=== PATIENT | male | born 1975 | race Caucasian/White ===

== ENCOUNTER 2020-01-28 14:47 | Outpatient (REF) | payer MEDICAID, SELFPAY ==
[2020-02-01 23:15] LABS: SARS-CoV-2 RNA Undetected (Undetected); SARS-CoV-2 Specimen Source Nasopharynx
== END 2020-01-28 15:07 ==
LOC: NCHCN 14:47
PROVIDERS: PCP Nurse Practitioner Family; Visit Provider Nurse Practitioner Family
DX: J02.9 Acute pharyngitis, unspecified (principal); Z11.59 Encounter for screening for other viral diseases
CPT/HCPCS: U0003

== ENCOUNTER 2020-07-21 20:20 | Outpatient (REF) | payer MEDICAID, SELFPAY ==
[2020-07-23 00:20] LABS: COVID-19 RT-PCR Result NEGATIVE (Negative)
== END 2020-07-21 20:40 ==
LOC: NCHCN 20:20
PROVIDERS: PCP Nurse Practitioner Family; Visit Provider Physician Assistant
DX: R51.9 Headache, unspecified (principal)
CPT/HCPCS: U0003

== ENCOUNTER 2021-09-21 15:27 | Emergency (ER) | payer MEDICAID, SELFPAY ==
[2021-09-21 15:40] VITALS: BP 148/92; PULSE 90; RESP 16; TEMP 36.8; O2SAT 98
--- NOTE | 2021-09-21 16:32 | ED.GENADUL_ITS ---
Discharge Plan Disposition Patient Disposition: HOME Condition: Improving Discharge Details Clinical Impression: Needle stick injury of hand Primary Care Provider: Radha Jordan ED Provider: Emmanuel Hernandez Home Meds and New Rx's Prescriptions: Continued albuterol sulfate [ProAir HFA] 8.5 GM HFA aerosol inhaler 2 puff Inhalation Q6H PRN 0RF Discharge Instructions Instructions: Puncture Wound (ED), Needle Stick Injuries (ED) Additional Instructions: Please follow-up with your primary care physician. Return to the emergency department for any signs of infection or further injury to finger. Specifically if you notice any swelling redness fevers pus drainage or worsening pain. We edward labs today to test for hepatitis B, hepatitis C and HIV. These will result in the next couple of days. 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 I offered to contact this individual however patient does not want to reach out as he is fearful that he may lose a client professionally. Given solid bore small needle that has likely been exposed to air for some time this is a low risk needlestick event. I counseled patient extensively regarding his proper management as he was correct and thoroughly irrigated the wound early on, we had patient continue to irrigate wound here in the department. Discussed postexposure prophylaxis but encouraged him at this point to postpone prophylaxis as it does come with side effects and his risk from this stick is likely low. Will draw basic hepatitis B C and HIV screening panel to obtain patient's baseline status. Patient will follow up with his primary care doctor. No evidence of retained foreign body or infection. No evidence of neurovascular or tendinous injury. HPI General Date/Time Provider Initiated Documentation: 09/21/21 15:37 . HPI Narrative: 46-year-old male presents after sustaining needlestick injury to tip of third digit of right hand, patient works for a cleaning service, was at a client's house cleaning behind a toilet when his finger came in contact with a small needle, describes the needle as small in nature less than 1 cm and solid bore attached to a piece of green plastic, patient said that the client also has what appears to be insulin pen and a glucometer in the house. Patient is unclear of clients hepatitis or HIV status and did not want to disturb the client as he fears he may lose a customer if he does so. Patient was able to express a small bit of blood fingertip if the stick and immediately thoroughly irrigated wound with soapy water and alcohol. Related Data Home Medications Medication Instructions Recorded Confirmed albuterol sulfate 90 mcg/actuation 2 puff INHALATION Q6H PRN inhaler 10/11/16 09/21/21 aerosol inhaler (ProAir HFA) Allergies Allergy/AdvReac Type Severity Reaction Status Date / Time No Known Allergies Allergy Unverified 09/21/21 15:47 General Stated Complaint: Laceration CHRISTA: 4 Review of Systems Narrative: Review of Systems Constitutional: negative Eyes: negative ENT: negative Cardiovascular: negative Respiratory: negative Gastrointestinal: negative : negative Musculoskeletal: negative Skin: Needlestick to finger Neurologic: negative Psych: negative PFSH All Active Problems (Updated 09/21/21 @ 16:42 by Emmanuel Hernandez MD) Needle stick injury of hand (Acute) Social History Smoking/Tobacco Use Status: Former Tobacco Use Smoking risk assessment performed?: Yes Alcohol Intake: never Drug use: Never Do you feel safe in your relationship?: Yes Exam Narrative Exam Narrative: Physical Examination General: alert, awake, cooperative, resting comfortably, no acute distress HEENT: normocephalic, atraumatic; PERRL, EOM intact, conjunctiva normal; no nasal discharge; moist mucous membranes, oral and pharyngeal mucosa normal, tolerating secretions Neck: supple, trachea midline; full ROM Chest: normal to inspection Respiratory: normal respiratory effort, speaking in full sentences, clear to auscultation, no wheezing, rales or rhonchi Cardiac: regular rate, regular rhythm, S1S2 intact, no murmurs rubs or gallops GI: abdomen soft, non-tender, non-distended; no palpable mass or hepatosplenomegaly Skin: Small punctate lesion to radial aspect of distal third digit adjacent to nail fold on right hand, hemostatic no foreign body Neuro: AAOx3, normal speech, moving all extremities Extremities: Range of motion fingers intact flexion extension, sensation intact, warm well perfused extremity good capillary refill. Psych: Appropriate mood and affect Course Vital Signs Vital signs: Vital Signs Temperature 36.8 C 09/21/21 15:40 Pulse 90 09/21/21 15:40 Respiratory Rate 16 09/21/21 15:40 Blood Pressure 148/92 H 09/21/21 15:40 Pulse Oximetry 98 09/21/21 15:40 Temperature 36.8 C 09/21/21 15:40 Temperature Source Skin 09/21/21 15:40 Pulse 90 09/21/21 15:40 Respiratory Rate 16 09/21/21 15:40 Respiratory Effort 09/21/21 15:47 Blood Pressure 148/92 H 09/21/21 15:40 Blood Pressure Position Sitting 09/21/21 15:40 Pulse Oximetry 98 09/21/21 15:40 Oxygen Delivery Method Room Air 09/21/21 15:40 Oxygen Flow Rate 0 09/21/21 15:40 Pain Level 0 09/21/21 15:40
[2021-09-21 19:00] LABS: ALT 72 U/L (16-63); AST 30 U/L (15-37); Albumin 4.3 g/dL (3.4-5.0); Alkaline Phosphatase 78 U/L (46-116); Bilirubin, Direct 0.1 mg/dL (0.0-0.2); Bilirubin, Total 0.6 mg/dL (0.2-1.0); Total Protein 7.2 g/dL (6.4-8.2)
[2021-09-23 10:11] LABS: HIV-1/2 Ag & Ab Screen Negative (Negative)
[2021-09-23 10:20] LABS: HBs Antibody, Quant <3.1 mIU/mL (See Note); Hep B Surface Ab Negative (See Note); Hepatitis B Core Antibody Negative (Negative); Hepatitis B Surface Antigen Negative (Negative)
[2021-09-23 10:28] LABS: Hepatitis C Ab w Rflx HCV PCR Negative (Negative)
== END 2021-09-21 18:28 | disposition home or self-care (01) ==
PROVIDERS: Emergency Provider Emergency Medicine; PCP Nurse Practitioner Family
DX: S61.232A Puncture wound without foreign body of right middle finger without damage to nail, initial encounter (principal); W46.0XXA Contact with hypodermic needle, initial encounter; Y99.0 Civilian activity done for income or pay
CPT/HCPCS: 80076; 86704; 86706; 86803; 87340; 87389; 99281; 99282

== ENCOUNTER 2022-02-20 17:47 | Emergency (ER) | payer MEDICAID, SELFPAY ==
[2022-02-20 17:52] VITALS: BP 135/79; PULSE 93; RESP 16; TEMP 38; O2SAT 97
--- OUTSIDE RECORDS SUMMARY | 2022-02-20 17:53 | XMS_ITS | Encounter Summary ---
:[address] [facility] Address [address] [place] [address] Care Team Providers Name Role Phone Unavailable Primary Care Provider Unavailable Encounter Details Date Type Department Care Team Description 07/15/2019 Lab Requisition [facility] Unknown, Provider, Pathology & Laboratory [facility] [address] [place] [address] [place] [address] Social History Tobacco Use Types Packs/Day Years Used Date Never Assessed Sex Assigned at Date Recorded Not on file documented as of this encounter Plan of Treatment Not on filedocumented as of this encounter Procedures Procedure Name Priority Date/Time Associated Diagnosis Comme nts HEPATITIS B SURFACE Routine 07/15/2019 11:40 Resu lts for this ANTIBODY EST procedure are i n the results section. documented in this encounter Results HEPATITIS B SURFACE ANTIBODY (07/15/2019 11:40 EST) Hep B Surface Ab, <3.1 See Note [facility] Quantitative Comment: mIU/mL [facility] Reference Range for Hep B Surface Ab, Quant: SERVICES Positive: >= 10.0 mIU/mL Negative: ??< 10.0 mIU/mL Patient is presumed to not be immune to infection with Hepatitis B Virus. Hep B Surface Ab, Negative See Note [facility] Qualitative Comment: [facility] SERVICES Reference Range for Hep B Surface Ab, Qual: Unvaccinated: ??Negative Vaccinated: ??Positive Specimen Blood - Venous blood (substance) Performing Organization Address City/State/ZIP Code Phon e Number [facility] [address] [place] [address] SERVICES documented in this encounter Visit Diagnoses Not on filedocumented in this encounter
--- OUTSIDE RECORDS SUMMARY | 2022-02-20 17:53 | XMS_ITS | Encounter Summary ---
:1975 Author Organization [facility] Address [address] [place] [address] Care Team Providers Name Role Phone Unavailable Primary Care Provider Unavailable Encounter Details Date Type Department Care Team Description 07/15/[address] [facility] Unknown, Provider, Pathology & Laboratory [facility] [address] [place] [address] [place], [place] [address] [phone] Social History Tobacco Use Types Packs/Day Years Used Date Never Assessed Sex Assigned at Date Recorded Not on file documented as of this encounter Plan of Treatment Not on filedocumented as of this encounter Procedures Procedure Name Priority Date/Time Associated Diagnosis Comme nts HOLD SST Routine 07/15/2019 15:52 Results for this EST procedure are i n the results section. HOLD SST Routine 07/15/2019 15:52 Results for this EST procedure are i n the results section. HOLD SST Routine 07/15/2019 15:51 Results for this EST procedure are i n the results section. MEASLES IGG AB Routine 07/15/2019 11:40 Results f or this EST procedure are i n the results section. RUBELLA IGG Routine 07/15/2019 11:40 Results for this ANTIBODY EST procedure are i n the results section. VARICELLA IGG Routine 07/15/2019 11:40 Results fo r this ANTIBODY EST procedure are i n the results section. MUMPS ANTIBODY IGG Routine 07/15/2019 11:40 Resul ts for this EST procedure are i n the results section. documented in this encounter Results HOLD SST (07/15/2019 15:52 EST) Pathologist Sig nature Hold Hold [facility] Specimen Blood - Venous blood (substance) Performing Organization Address City/State/ZIP Code Phon e Number [facility] [address] [place] [address] SERVICES HOLD SST (07/15/2019 15:52 EST) Pathologist Sig nature Hold Hold [facility] Specimen Blood - Venous blood (substance) Performing Organization Address City/State/ZIP Code Phon e Number [facility] [address] [place] [address] SERVICES HOLD SST (07/15/2019 15:51 EST) Pathologist Sig nature Hold Hold [facility] Specimen Blood - Venous blood (substance) Performing Organization Address City/State/ZIP Code Phon e Number [facility] [address] [place] [address] SERVICES MEASLES IGG AB (07/15/2019 11:40 EST) Measles IgG Ab PositiveComment: See Note [facility] Presence of LABORATORY SERVICES detectable measles virus IgG antibodies. Specimen Blood - Venous blood (substance) Performing Organization Address City/State/ZIP Code Phon e Number [facility] [address] [place] [address] SERVICES VARICELLA IGG ANTIBODY (07/15/2019 11:40 EST) Varicella IgG Ab PositiveComment: See Note [facility] Presence of LABORATORY SERVICES detectable Varicella Zoster virus IgG antibodies. Specimen Blood - Venous blood (substance) Performing Organization Address City/State/ZIP Code Phon e Number [facility] [address] [place] [address] SERVICES MUMPS ANTIBODY IGG (07/15/2019 11:40 EST) Mumps Antibody IgG PositiveComment: See Note [facility] Presence of LABORATORY SERVICES detectable mumps virus IgG antibodies. Specimen Blood - Venous blood (substance) Performing Organization Address City/State/ZIP Code Phon e Number [facility] [address] [place] [address] SERVICES RUBELLA IGG ANTIBODY (07/15/2019 11:40 EST) Rubella IgG Ab NegativeComment: See Note [facility] Sample is considereed LABORATORY SERVICES negative for IgG antibodies to Rubella virus. A negative result presumes that immunity has not been acquired. If exposure to Rubella virus is suspected despite a negative finding, a second specimen should be collected and tested for Rubella IgG Ab one or two weeks later. Specimen Blood - Venous blood (substance) Performing Organization Address City/State/ZIP Code Phon e Number [facility] [address] [place] [address] SERVICES documented in this encounter Visit Diagnoses Not on filedocumented in this encounter
--- OUTSIDE RECORDS SUMMARY | 2022-02-20 17:53 | XMS_ITS | Encounter Summary ---
:1975 Author Organization [facility] Address [address] [place] [address] Care Team Providers Name Role Phone Unavailable Primary Care Provider Unavailable Encounter Details Date Type Department Care Team Description 07/21/2020 Lab Requisition [facility] Outr Resulting Lab, Pathology & Laboratory Provider [facility] acute hospital [address] [place], [place] [address] Social History Tobacco Use Types Packs/Day Years Used Date Never Assessed Sex Assigned at Date Recorded Not on file documented as of this encounter Plan of Treatment Not on filedocumented as of this encounter Procedures Procedure Name Priority Date/Time Associated Comments Diagnosis DO NOT ORDER Today 07/21/2020 14:17 Results for this STANDALONE - BROAD EST procedure are in COVID TEST the results section. COVID-19 TESTING Routine 07/21/2020 14:17 Results for this EST procedure are i n the results section. documented in this encounter Results DO NOT ORDER STANDALONE - BROAD COVID TEST (07/21/2020 14:17 EST) COVID-19 rt-PCR NEGATIVE Negative [facility] Result Comment: LABORATORY 2019-novel Coronavirus (2019 -nCoV) not detected by the qRT-PCR assay. Consider testing for other respiratory viruses or re-collecting for 2019-nCoV testing. Note: Optimum timing for peak viral levels du ring infections caused by 20 -nCoV have not been determined. Collection of multiple specimens from the same patient may be necessary to detect the virus. Limitations Positive results are indicat mason of active infection with SARS-CoV-2 but do not rule out bacterial infection or co-infection with other viruses. The agent detected may not be the definite cause of diseas e. In addition, detection of viral RNA may not indicate the presence of infectious virus or that SARS-CoV-2 is the causative agent for clinical symptoms. Negative results do not prec lude SARS-CoV-2 infection and should not be used as the sole basis for patient management decisions. Negative results must be combined with clinical observations, patient his tory, and epidemiological in formation. False negative results may also occur if amplification inhibitors are present in the specimen or if inadequate numbers of organisms are present in the specimen. Op timum specimen types and priscilla ing for peak viral levels during infections caused by SARS-CoV-2 have not been fully determined. Collection of multiple specimens (types and time points) from the same patient may be necessary to detect the virus. The test was validated for u with upper respiratory specimens obtained via nasopharyngeal or oropharyngeal swabs in VTM, UTM, M4, M5, M6, saline, and MTM media. The performance of this test has not be en established for other spe cimens. Specimens collected using other FDA recommended Specimen Collection Materials listed in the FDA COVID-19 [employer] communication (October 24, 2019) are pr ocessed with the caveat that they were not all validated for use with this test and the result must be interpreted in this context. Furthermore, a false negative results may occur if a specimen is improperly collected, transported or handled. If the virus mutates in the RT-PCR target region, SARS-CoV-2 may not be detected or may be detected less predictably. Inhibitors or other types of interference may produce a false negative result. An interference study evaluating the effect of common cold medications was not performed. This test is not FDA-cleared but its performance characteristics were established by our CLIA-certified, CAP-accredited, high complexity laboratory in accordance with CLIA regulations, [employer] (CAP) guidel rhonda (Oct 17, 2019), and FDA guidance (Sep 28, 2019). This test is only for use un jazmin the Food and Drug Administration's Emergency Use Authorization. Specimen Swab - Entire nasopharynx (body structur e) Performing Organization Address City/State/ZIP Code Phon e Number [facility] [place] COVID-19 TESTING (07/21/2020 14:17 EST) COVID-19 rt-PCR NEGATIVE Negative [facility] Result Comment: LABORATORY 2019-novel Coronavirus (2019 -nCoV) not detected by the qRT-PCR assay. Consider testing for other respiratory viruses or re-collecting for 2019-nCoV testing. Note: Optimum timing for peak viral levels du ring infections caused by 20 19-nCoV have not been determined. Collection of multiple specimens from the same patient may be necessary to detect the virus. Limitations Positive results are indicat mason of active infection with SARS-CoV-2 but do not rule out bacterial infection or co-infection with other viruses. The agent detected may not be the definite cause of diseas e. In addition, detection of viral RNA may not indicate the presence of infectious virus or that SARS-CoV-2 is the causative agent for clinical symptoms. Negative results do not prec lude SARS-CoV-2 infection and should not be used as the sole basis for patient management decisions. Negative results must be combined with clinical observations, patient his tory, and epidemiological in formation. False negative results may also occur if amplification inhibitors are present in the specimen or if inadequate numbers of organisms are present in the specimen. Op timum specimen types and priscilla ing for peak viral levels during infections caused by SARS-CoV-2 have not been fully determined. Collection of multiple specimens (types and time points) from the same patient may be necessary to detect the virus. The test was validated for u se with upper respiratory specimens obtained via nasopharyngeal or oropharyngeal swabs in VTM, UTM, M4, M5, M6, saline, and MTM media. The performance of this test has not be en established for other spe cimens. Specimens collected using other FDA recommended Specimen Collection Materials listed in the FDA COVID-19 [employer] communication (October 24, 2019) are pr ocessed with the caveat that they were not all validated for use with this test and the result must be interpreted in this context. Furthermore, a false negative results may occur if a specimen is improperly collected, transported or handled. If the virus mutates in the RT-PCR target region, SARS-CoV-2 may not be detected or may be detected less predictably. Inhibitors or other types of interference may produce a false negative result. An interference study evaluating the effect of common cold medications was not performed. This test is not FDA-cleared but its performance characteristics were established by our CLIA-certified, CAP-accredited, high complexity laboratory in accordance with CLIA regulations, [employer] (CAP) guidel rhonda (Oct 17, 2019), and FDA guidance (Sep 28, 2019). This test is only for use un jazmin the Food and Drug Administration's Emergency Use Authorization. Performing Lab [facility] SERVICES Specimen Swab Performing Organization Address City/State/ZIP Code Phon e Number [facility] [address] [place] [address] SERVICES [facility] [place] documented in this encounter Visit Diagnoses Not on filedocumented in this encounter
--- OUTSIDE RECORDS SUMMARY | 2022-02-20 17:53 | XMS_ITS | Encounter Summary ---
:1975 Author Organization [facility] Address [address] [place] [address] Care Team Providers Name Role Phone Unavailable Primary Care Provider Unavailable Encounter Details Date Type Department Care Team Description 07/16/2019 Lab Requisition [facility] Unknown, Provider, Pathology & Laboratory [facility] [address] [place] [address] [place] [address] Social History Tobacco Use Types Packs/Day Years Used Date Never Assessed Sex Assigned at Date Recorded Not on file documented as of this encounter Plan of Treatment Not on filedocumented as of this encounter Procedures Procedure Name Priority Date/Time Associated Comments Diagnosis QUANTIFERON TB GOLD Routine 07/15/2019 11:40 Resu lts for this PLUS EST procedure are i n the results section. documented in this encounter Results QUANTIFERON TB GOLD PLUS (07/15/2019 11:40 EST) Quantiferon Negative Negative [facility] Interpretation Comment: [facility] No interferon-gamma response to M. tuberculosis antigens was detected. ??Infection with M. tuberculosis is unlikely. A single negative result does not exclude infection with M. tuberculosis. ??In patien SERVICES ts at high risk for M. tuber culosis infection, a second test should be considered in accordance with the 2017 ATS/IDSA/CDC Clinical Practice Guidelines for Diagnosis of Tuberculosis in Adults and Childr en. [Armani SALEH et. al. Clin. Infect. Dis. 2017:64 ( 2) ??: 111-115]. Results were obtained with the [employer] QuantiFERON TB G old Plus TACO. TB1 Ag minus Nil 0.00 IU/ml [facility] TB2 Ag minus Nil 0.00 IU/mL [facility] Specimen Blood - Venous blood (substance) Narrative [facility] - 07/17/2019 13:35 EST Results were obtained with the [employer] Qu antiFERON-TB Gold Plus TACO. Performing Organization Address City/State/ZIP Code Phon e Number [facility] [address] [place] [address] SERVICES documented in this encounter Visit Diagnoses Not on filedocumented in this encounter
--- OUTSIDE RECORDS SUMMARY | 2022-02-20 17:53 | XMS_ITS | Encounter Summary ---
:1975 Author Organization [facility] Address [address] [place] [address] Care Team Providers Name Role Phone Unavailable Primary Care Provider Unavailable Encounter Details Date Type Department Care Team Description 09/21/2021 Lab Requisition [facility] Outr Resulting Lab, Pathology & Laboratory Provider [facility] [address] [place] [address] Social History Tobacco Use Types Packs/Day Years Used Date Never Assessed Sex Assigned at Date Recorded Not on file documented as of this encounter Plan of Treatment Not on filedocumented as of this encounter Procedures Procedure Name Priority Date/Time Associated Comments Diagnosis HIV 1/2 ANTIGEN AND Routine 09/21/2021 16:41 Resu lts for this ANTIBODY, 4TH EST procedure are in GENERATION the results section. documented in this encounter Results HIV 1/2 ANTIGEN AND ANTIBODY, 4TH GENERATION (09/21/2021 16:41 EST) HIV 1 and 2 NegativeComment: If Negative [facility] Antibody/p24 acute HIV-1 LABORATORY Antigen, 4th infection is SERVICES Generation suspected in a high risk patient, submit plasma specimen for HIV-1 RNA quantitation test. Specimen Blood - Venous blood (substance) Narrative [facility] SERVICES - 09/23/2021 10:06 EST Fourth Generation assay performed on the Siemens Centaur XPT. Performing Organization Address City/State/ZIP Code Phon e Number [facility] [address] [place] [address] SERVICES documented in this encounter Visit Diagnoses Not on filedocumented in this encounter
--- OUTSIDE RECORDS SUMMARY | 2022-02-20 17:53 | XMS_ITS | Clinical Summary ---
:1975 Author Organization [facility] Address [address] [place] [address] Care Team Providers Name Role Phone Unavailable Primary Care Provider Unavailable Social History Tobacco Use Types Packs/Day Years Used Date Never Assessed Sex Assigned at Date Recorded Not on file Plan of Treatment Health Maintenance Due Date Last Done Comments COVID-19 Vaccine (1) 02/15/1981 Hepatitis C Screen Completed 09/21/2021 Insurance Payer Benefit Plan Subscriber ID Effective Phone Address Typ e / Group Dates MEDICAID ACO MEDICAID ACO [id number] 2019-Pres [phone] [address] [place] [address] [place] [address]
--- NOTE | 2022-02-20 18:15 | DI.CT_ITS ---
Exam(s) CT ABDOMEN PELVIS W EXAM: CT ABDOMEN PELVIS W CLINICAL HISTORY: LLQ abd pain, fever, concern for diverticulitis. TECHNIQUE: Imaging Protocol: Axial computed tomography images with coronal and sagittal reformatted images were created and reviewed CONTRAST MATERIAL: Intravenous: Omnipaque 100cc Oral: None COMPARISON: CT ABD PELVIS WITH CONTRAST from 01/07/2016 FINDINGS: VISUALIZED LUNG BASES: No nodules nor pleural effusions evident. ABDOMEN: There is no ascites. LIVER: There are no focal hepatic lesions evident . GALLBLADDER/BILIARY: No obvious gallbladder pathology. CBD is not dilated. PANCREAS: No evidence of pancreatic mass nor dilatation of the pancreatic duct. SPLEEN: Spleen is not enlarged. No obvious intrasplenic lesions. Splenic and portal veins are paten t. ADRENALS: There are no significant adrenal masses. KIDNEYS:No cysts evident. No solid renal masses. No calculi nor hydronephrosis.. ABDOMINAL AORTA: Abdominal aorta is not enlarged. LYMPH NODES:There is no retroperitoneal nor paraaortic adenopathy. ABDOMINAL WALL: No evidence of significant anterior abdominal wall nor inguinal hernia. PELVIS: GI: No evidence of appendicitis.Extensive sigmoid diverticulosis. Also streaking consistent with acu te diverticulitis. LYMPH NODES: There is no intrapelvic nor inguinal adenopathy. REPRODUCTIVE: Prostate not enlarged. Seminal vesicles unremarkable. URINARY BLADDER: Uniform bladder wall thickening. No air-gas within the lumen to suggest fistulous c ommunication to the inflammatory process of the sigmoid OSSEOUS: No significant osseous lesions. No fractures. IMPRESSION: 1. Findings are consistent with acute sigmoid diverticulitis, this superimposed upon extensive sigmoi d diverticulosis. Trace adjacent fluid. No abscess. No adenopathy. 2. Appendix appears unremarkable. 3. Slight uniform thickening of the urinary bladder wall noted but no gas within the bladder lumen to suggest fistulous communication to the sigmoid RADIATION DOSE DELIVERED: 806.94mGy.cm Total DLP DATA REPOSITORY: All CT scans at this facility are submitted to the National Radiology Data Registry (NRDR) Dose Index Registry (DIR) with the [employer] (A[employer]). RADIATION OPTIMIZATION: All CT scans at this facility use at least one of these dose optimization te chniques: automated exposure control; mA and/or kV adjustment per patient size (includes targeted exa ms where dose is matched to clinical indication); or iterative reconstruction.
--- NOTE | 2022-02-20 18:15 | DI.RAD_ITS ---
Exam(s) XR CHEST 1V IN DI DEPT EXAM: XR CHEST 1V IN DI DEPT CLINICAL HISTORY: nausea vomiting fever. TECHNIQUE: 2D digital imaging was performed. COMPARISON: CR CHEST 2 VIEWS PA,LAT from 01/21/2013 FINDINGS: Single AP portable view. Heart size is upper normal. The mediastinum is not widened. Lungs are clear. No infiltrates nor obvious pleural effusions. IMPRESSION: No acute pulmonary findings on this single AP portable view of the chest. DATA REPOSITORY: RADIATION DOSE DELIVERED: All CT scans at this facility use at least one of these dose optimization techniques: automated exposure control; mA and/or kV adjustment per patient size (includes targeted e xams where dose is matched to clinical indication); or iterative reconstruction.
--- NOTE | 2022-02-20 18:25 | ED.GENADUL_ITS ---
Discharge Plan Disposition Patient Disposition: HOME Condition: Stable Discharge Details Chief Complaint: Abd Prob Clinical Impression: Diverticulitis Primary Care Provider: Kat Dickson ED Provider: Emmanuel Hernandez Discharge Instructions Instructions: Diverticulitis (ED) Additional Instructions: Please follow-up with your primary care physician. Please take antibiotics as prescribed. Return to the emergency department he develop worsening symptoms such as worsening pain abdominal distention fevers chills inability to tolerate food or other abnormal symptoms. Medical Decision Making 47-year-old male presents with left lower quadrant abdominal discomfort over the past day associate with nausea decreased p.o. intake, persistent, diaphoresis on arrival, borderline tachycardic, febrile, concern for diverticulitis versus colitis versus less consider UTI with pyelonephritis or kidney stone lower suspicion for ACS or pneumonia given no respiratory symptoms. Fluids analgesia antiemetics labs imaging close reassessment disposition pending results 20: 22 evidence of diverticulitis. Patient's clinical presentation greatly improved after fluids antiemetics and pain medication. His color is greatly improved. No vomiting in department. Patient believes he will be able to take p.o. antibiotics. Will dose Augmentin here in the department. Home care instructions and return precautions given. HPI General Date/Time Provider Initiated Documentation: 02/20/22 18:08 . HPI Narrative: 47-year-old male presents with left lower quadrant abdominal pain over the past day associate with nausea decreased p.o. intake, denies history of abdominal surgery. Denies urinary symptoms. Denies upper back pain. Related Data Allergies Allergy/AdvReac Type Severity Reaction Status Date / Time No Known Allergies Allergy Unverified 02/20/22 17:57 General Stated Complaint: Abd Prob CHRISTA: 3 Review of Systems Narrative: Review of Systems Constitutional: negative Eyes: negative ENT: negative Cardiovascular: negative Respiratory: negative Gastrointestinal: Abdominal pain nausea : negative Musculoskeletal: negative Skin: negative Neurologic: negative Psych: negative PFSH All Active Problems (Updated 02/20/22 @ 20:25 by Emmanuel Hernandez MD) Diverticulitis (Chronic) Social History Smoking/Tobacco Use Status: Former Tobacco Use Smoking risk assessment performed?: Yes Alcohol Intake: current Alcohol Intake frequency: a few times a month Drug use: Socially Substance use type: marijuana Details: uses for anxiety Do you feel safe at home: Yes Do you feel safe in your relationship?: Yes Exam Narrative Exam Narrative: Physical Examination General: alert, awake, cooperative, moderately uncomfortable HEENT: normocephalic, atraumatic; PERRL, EOM intact, conjunctiva normal; no nasal discharge; moist mucous membranes, oral and pharyngeal mucosa normal, tolerating secretions Neck: supple, trachea midline; full ROM Chest: normal to inspection Respiratory: normal respiratory effort, speaking in full sentences, clear to auscultation, no wheezing, rales or rhonchi Cardiac: regular rate, regular rhythm, S1S2 intact, no murmurs rubs or gallops GI: abdomen soft, non-tender, non-distended; no palpable mass or hepatosplenomegaly Skin: Pallor, diaphoresis Neuro: AAOx3, normal speech, moving all extremities Extremities: Psych: Appropriate mood and affect Course Vital Signs Vital signs: Vital Signs Temperature 38 C H 02/20/22 17:52 Pulse 93 H 02/20/22 17:52 Respiratory Rate 16 02/20/22 17:52 Blood Pressure 135/79 02/20/22 17:52 Pulse Oximetry 97 02/20/22 17:52 Temperature 38 C H 02/20/22 17:52 Temperature Source Skin 02/20/22 17:52 Pulse 93 H 02/20/22 17:52 Respiratory Rate 16 02/20/22 17:52 Respiratory Effort 02/20/22 17:59 Blood Pressure 135/79 02/20/22 17:52 Blood Pressure Position Sitting 02/20/22 17:52 Pulse Oximetry 97 02/20/22 17:52 Oxygen Delivery Method Room Air 02/20/22 17:52 Oxygen Flow Rate 0 02/20/22 17:52 Pain Level 5 02/20/22 17:52 PAWSS Have you Been Recently Intoxicated or Drunk Within the Last 30 days?: No Have you Ever Experienced Previous Episodes of Alcohol Withdrawal?: No Have you ever Experienced Withdrawal Seizures?: No Have you ever Experienced Delirium Tremens(DT)s?: No Have you ever undergone Alcohol Rehabilitation Treatment (i.e, inpt ot outpatient treatment programs)?: No Have you ever Experienced Blackouts?: No Have you ever Combined Alcohol with other Downers within the last 90 days?: No Have you ever Combined Alcohol with any other Substance of Abuse during the last 90 days?: No Positive Blood Alcohol level on Presentation? [PCS.BAL]: No Evidence of Increased Autonomic Activity (i.e. HR>120, tremor, sweating, agitation, nausea)?: No Result: 0
[2022-02-20] MEDS: Normal Saline 1,000 ML 1000 ML IV (18:54)
[2022-02-20 18:55] LABS: Abs Immature Grans 0.05 10^3/uL (0.0-0.06); Absolute Basophil Count 0.04 10^3/uL (0.0-0.2); Absolute Monocyte Count 1.51 10^3/uL (0.1-0.8); Basophils % 0.3; Eosinophils % 0.3; HCT 45.8 % (40.0-50.0); HGB 16.3 g/dL (13.5-17.5); Immature Grans % 0.3; Lymphocytes % 11.5; MCHC 35.6 % (32.0-36.0); MCV 87 fL (80-95); Monocytes % 10.1; Neutrophils % 77.5; Platelet Count 238 10^3/uL (130-400); RBC 5.26 10^6/uL (4.36-5.78); RDW 12.4 % (11.8-14.1); RDW-SD 39.4 fL; WBC 14.91 10^3/uL (4.4-10.8)
[2022-02-20 18:57] LABS: Absolute Eosinophil Count 0.04 10^3/uL (0.0-0.7); Absolute Lymphocyte Count 1.71 10^3/uL (1.2-3.4); Absolute Neutrophil Count 11.56 10^3/uL (1.2-6.7)
[2022-02-20] MEDS: Ondansetron 4 MG/2 ML VIAL IVP (18:59)
[2022-02-20] MEDS: MORPHine 4 MG/ML SYR 2 MG IVP (18:59)
[2022-02-20 19:12] LABS: ALT 49 U/L (16-63); AST 17 U/L (15-37); Albumin 4.2 g/dL (3.4-5.0); Alkaline Phosphatase 95 U/L (46-116); Anion Gap 10.3 mmol/L (3-11); BUN 16 mg/dL (7-18); Bilirubin, Total 0.8 mg/dL (0.2-1.0); CO2 24.7 mmol/L (21.0-32.0); CREATININE 1.2 mg/dL (0.70-1.30); Chloride 103 mmol/L (98-107); Glucose 122 mg/dL (74-106); Lipase 33 U/L (73-393); Potassium 3.6 mmol/L (3.5-5.1); Sodium 138 mmol/L (136-145); Total Protein 7.9 g/dL (6.4-8.2); Troponin I < 50 ng/L (<or=60)
[2022-02-20 19:13] LABS: Diff Comment Agrees w/ Instrument; RBC Morphology Normal
[2022-02-20 19:42] LABS: Bilirubin Negative (Negative); Blood Negative (Negative); Clarity Clear (Clear); Glucose Negative (Negative); Ketones 15 mg/dL (Negative); Leukocyte Esterase Negative (Negative); Nitrite Negative (Negative)
[2022-02-20] MEDS: Omnipaque 350 MG/ML 100 ML BTL 50 ML IJ (19:46)
--- NOTE | 2022-02-20 20:07 | DI.VRAD_ITS ---
PROCEDURE INFORMATION: Exam: XR Chest Exam date and time: 02/20/2022 7:36 PM Age: 47 years old Clinical indication: Other: Vomiting, fever, TECHNIQUE: Imaging protocol: Radiologic exam of the chest. Views: 1 view. COMPARISON: CT ABDOMEN PELVIS W 02/20/2022 7:34 PM FINDINGS: Lungs: No pulmonary consolidation. Pleural spaces: No pleural effusion or pneumothorax. Heart/Mediastinum: Normal sized heart. Bones/joints: Visualized bony structures grossly unremarkable, as seen. IMPRESSION: No active disease is seen in the chest. Dictated and Authenticated by: El Peterson MD. Ordering:CAIO Benitez MD
--- NOTE | 2022-02-20 20:10 | DI.VRAD_ITS ---
PROCEDURE INFORMATION: Exam: CT Abdomen And Pelvis With Contrast Exam date and time: 02/20/2022 7:34 PM Age: 47 years old Clinical indication: Fever and nausea and vomiting; Abdominal pain; Localized; Left lower quadrant (llq); Additional info: Llq pain, vomiting, fever, TECHNIQUE: Imaging protocol: Computed tomography of the abdomen and pelvis with contrast. Radiation optimization: All CT scans at this facility use at least one of these dose optimization techniques: automated exposure control; mA and/or kV adjustment per patient size (includes targeted exams where dose is matched to clinical indication); or iterative reconstruction. Contrast material: OMNI 350; Contrast volume: 100 ml; Contrast route: INTRAVENOUS (IV); COMPARISON: CT ABD PELVIS WITH CONTRAST 01/07/2016 8:16 AM FINDINGS: Lungs: Lung bases clear. Liver: Possible fatty infiltration of the liver, difficult to confidently diagnose by CT imaging after administration of intravenous contrast. Gallbladder and bile ducts: Normal appearing gallbladder. No calcified gallstones. No biliary dilatation. Pancreas: Normal appearing pancreas. Spleen: Normal appearing spleen. Adrenal glands: Normal appearing adrenal glands. Kidneys and ureters: Normal appearing kidneys. No hydronephrosis. No obstructing ureteral stones. Stomach and bowel: No oral contrast. Stomach partially decompressed. No small bowel dilatation to suggest obstruction. Sigmoid diverticulosis. Mural thickening and pericolic fat stranding in the proximal sigmoid region with thickening of the reflection of the sigmoid mesocolon and trace adjacent fluid in keeping with acute sigmoid diverticulitis. Appendix: Normal appendix. Intraperitoneal space: Trace fluid in the deep pelvis. No free air. Vasculature: Normal caliber abdominal aorta. Lymph nodes: No pathologically enlarged mesenteric, retroperitoneal, or pelvic sidewall lymph nodes. Urinary bladder: Urinary bladder partially decompressed but circumferentially thick-walled. Reproductive: Normal-appearing prostate gland and seminal vesicles. Bones/joints: No acute fracture seen among the bones of the abdomen or pelvis. Soft tissues: Tiny fat-containing ventral hernia at the umbilicus, doubtful clinical significance. IMPRESSION: 1. Acute sigmoid diverticulitis. 2. Urinary bladder partially decompressed but circumferentially thick-walled. Clinical correlation is recommended to exclude acute cystitis or secondary acute cystitis. Artifact of incomplete distention could also account for apparent bladder wall thickening. Dictated and Authenticated by: El Peterson MD. Ordering:CAIO Benitez MD
[2022-02-20] MEDS: Amoxicillin 875/Clav. 125 TAB PO (20:26)
[2022-02-20 20:35] VITALS: BP 122/87; PULSE 84; TEMP 37.9; O2SAT 98
== END 2022-02-20 20:46 | disposition home or self-care (01) ==
PROVIDERS: Emergency Provider Emergency Medicine; PCP Nurse Practitioner Family
DX: K57.32 Diverticulitis of large intestine without perforation or abscess without bleeding (principal); Z87.891 Personal history of nicotine dependence; Z20.822 Contact with and (suspected) exposure to COVID-19
CPT/HCPCS: 36415; 80053; 83690; 96361; 96374; 96375; 99285; 71045; 74177; 81003; 84484; 85025; 99284; J2270; J2405; J3490

== ENCOUNTER 2022-04-07 10:23 | Outpatient (REF) | payer MEDICAID, SELFPAY ==
[2022-04-07 15:53] LABS: Calculated LDL 128 mg/dL (<100); Cholesterol 186 mg/dL (<200); HDL Cholesterol 37 mg/dL (40-60); Triglyceride 107 mg/dL (<150)
== END 2022-04-07 10:24 | disposition home or self-care (01) ==
LOC: NCHCN 10:23
PROVIDERS: PCP Nurse Practitioner Family; Visit Provider Nurse Practitioner Family
DX: Z13.220 Encounter for screening for lipoid disorders (principal)
CPT/HCPCS: 80061

== ENCOUNTER 2022-04-28 08:38 | Day surgery (SDC) | payer MEDICAID, SELFPAY ==
--- NOTE | 2022-04-28 07:32 | W.ANESPRE ---
General Info Date of Service Date Performed: 04/28/22 Height: 5 ft 5 in Weight: 93.922 kg Body Mass Index (BMI): 34.4 Surgical Procedure: Operation Date: 04/28/22 11:05 Proposed Procedure Side Surgeon p Colonoscopy Malena Infante MD Meds Allergies and Home Medications Allergies Allergy/AdvReac Type Severity Reaction Status Date / Time No Known Allergies Allergy Verified 04/28/22 08:59 Current Visit Medications: Current Medications Generic Name Dose Route Start Last Admin Trade Name Freq PRN Reason Stop Dose Admin Ringer's Solution 1,000 mls @ 80 mls/hr 04/28/22 06:00 IV 05/27/22 23:59 INFUSION TWIN IV Miscellaneous Supplies 1 each 04/28/22 06:00 Iv Access IV 05/27/22 23:59 DIRECTED TWIN Sodium Chloride 0 ml 04/28/22 06:00 Normal Saline Flush 10 Ml Syr IV 05/27/22 23:59 PRN PRN Sodium Chloride 0 ml 04/28/22 06:00 Normal Saline 10 Ml Vial IJ 05/27/22 23:59 DIRECTED PRN Sterile Water 0 ml 04/28/22 06:00 Water,Injection,Sterile 10 Ml Vial IJ 05/27/22 23:59 DIRECTED PRN PFSH Active Problems Active Problems: Problem Status Onset Code Diverticulosis K57.90 Medical History Medical History Asthma Diverticulitis Hx of diverticulitis of colon Medial epicondylitis Plantar fasciitis Seizure disorder Per pt. states he had grand mal seizures that turned into petite mal when he was a child, last seizure was when he 9 years old Tobacco Smoking/Tobacco Use Status: Former Tobacco Use Alcohol Alcohol Intake: current Alcohol intake frequency: a few times a month Substance Use Substance use: Rarely Substance use type: marijuana Vital Signs and Lab Results Vital Signs Most Recent Vital Signs in EMR: Temp Pulse Resp BP Pulse Ox 36.4 C L 61 16 129/82 100 04/28/22 09:00 04/28/22 09:00 04/28/22 09:00 04/28/22 09:00 04/28/22 09:00 Lab Results Blood Type / Crossmatch: No Data to Display Complete Blood Count: No Data to Display Complete Metabolic Panel: No Data to Display Liver Function Panel: No Data to Display Coagulation Panel: No Data to Display Cardiac Panel: No Data to Display Arterial Blood Gas: No Data to Display Venous Blood Gas: No Data to Display Pancreas Panel: No Data to Display Thyroid Panel: No Data to Display Infectious Disease: No Data to Display Blood Cultures: No Data to Display Toxicology Panel: No Data to Display Anesthesia Assessment and Plan Anesthesia History Personal History: No History of Anesthesia Complications Family History: No Family History of Anesthesia Complications Exercise Tolerance Exercise Tolerance: Metabolic Equivalents>4 Pertinent Negatives Pertinent Negatives: No Symptoms of GERD, No Major Cardiovascular Symptoms or Complaints and No Major Pulmonary Symptoms or Complaints Cardiac & Pulmonary Exam Cardiac Exam: Normal S1/S2 Heart Sounds Pulmonary Exam: Clear Bilateral Breath Sounds Implantable Cardiac Device Does patient have a Pacemaker or an ICD?: No Airway Exam Known Difficult Airway: No Mallampati Class: 2 Mouth Opening: Normal (> 3cm) Thyromental Distance: Greater than 3 cm Neck Range of Motion: Full ROM Neck Circumference: Normal Teeth Condition: Generalized Poor Dentition ASA Classification ASA Score: ASA 2 Emergency Case?: No NPO Status NPO Status: NPO Clears >2 hours, Solids >8 hours Anesthesia Plan Resuscitation Status: Full Code Anesthesia Technique: General Anesthesia Airway Planned: Natural Airway Monitors Used: Standard Monitors Preoperative Comments:: 47 yo male with diverticulosis for colo. Sig PMHx: asthma, sz, former smoker (quit 1995), occ EtOH/cannabis.
--- NOTE | 2022-04-28 07:44 | W.PREOPHP ---
Assessment and Plan Assessment and plan (1) Encounter for colorectal cancer screening: Status: Acute Assessment and plan: The patient is a pleasant 47-year-old male who is here to discuss his first screening colonoscopy after having a bout of diverticulitis in January. He denies any changes in bowel habits, melena, hematochezia, unintentional weight loss or family history of colon cancer. The procedure and risks were discussed. The prep was reviewed in detail. Risks, benefits and complications have been reviewed. Complications include but are not limited to bleeding, pain, perforation, missed small lesion/polyp, sore throat, aspiration and adverse reaction to the medications. Questions were entertained and answered to their satisfaction and they wished to proceed. No guarantees were given or implied. Proceed with colonoscopy under sedation (2) Hx of diverticulitis of colon: History of Present Illness Narrative: I had the pleasure of meeting Eric in the office today after referral from the emergency department for evaluation of diverticulitis, and potential for screening colonoscopy.? Briefly, he is 47 years old that showed up in the emergency department approximately 1 month ago with a chief complaint of cute onset of left-sided abdominal pain.? He says he basically was not feeling himself for the hours leading up to it.? He experienced a sharp and crampy pain on the left side, the radiated down to the suprapubic region.? He underwent a CAT scan of his abdomen and pelvis that demonstrated sigmoid diverticulitis.? He was prescribed an outpatient regimen of Augmentin, which he completed this morning.? He is currently pain-free.? He is experiencing normal bowel function for himself.? He denies any? melena, hematochezia, or diarrhea.? He denies any family history of colorectal cancer or diseases. Review of Systems All systems reviewed & are unremarkable except as noted in HPI and below PFSH All Active Problems Encounter for colorectal cancer screening (Acute) Diverticulosis (Acute) Medical History Asthma Diverticulitis Hx of diverticulitis of colon Medial epicondylitis Plantar fasciitis Seizure disorder Per pt. states he had grand mal seizures that turned into petite mal when he was a child, last seizure was when he 9 years old Social History Smoking/Tobacco Use Status: Former Tobacco Use Quit Date: 07/31/95 Smoking risk assessment performed?: Yes Alcohol Intake: current Alcohol Intake frequency: a few times a month Drug use: Rarely Substance use type: marijuana Do you feel safe at home: Yes Do you feel safe in your relationship?: Yes Meds Allergies and Home Medications Allergies Allergy/AdvReac Type Severity Reaction Status Date / Time No Known Allergies Allergy Verified 04/28/22 08:59 Exam Const General: comfortable and no acute distress HENMT Head: normocephalic and atraumatic Resp Effort & Inspection: normal respiratory effort Auscultation: clear to auscultation bilaterally Cardio Rate: regular rate Rhythm: regular rhythm
--- NOTE | 2022-04-28 07:47 | W.COLOREPORT ---
Colonoscopy Report Date of procedure: 04/28/22 Pre-op diagnosis general: Colon Cancer screening, Hx of diverticulitis Post-op diagnosis procedure note: other (polyp and diverticulosis) Procedure: Colonoscopy with polypectomy Surgeon: Malena Infante Anesthesia Type: General:No Airway Estimated blood loss (mL): 2 Pathology: other (sigmoid polyp) Complications: None Disposition: same day Indications: The patient is a pleasant 47-year-old male who is here to discuss his first screening colonoscopy after having a bout of diverticulitis in January. He denies any changes in bowel habits, melena, hematochezia, unintentional weight loss or family history of colon cancer. The procedure and risks were discussed. The prep was reviewed in detail. Risks, benefits and complications have been reviewed. Complications include but are not limited to bleeding, pain, perforation, missed small lesion/polyp, sore throat, aspiration and adverse reaction to the medications. Questions were entertained and answered to their satisfaction and they wished to proceed. No guarantees were given or implied. Proceed with colonoscopy under sedation Prep: Miralax/Dulcolax Procedure Start Time: 10:11 Procedure End Time: :29 Retraction Time: 13 minutes Findings: one polyp mild diverticulosis Procedure Description: After informed consent was obtained the patient was taken to the procedure room and placed in a left decubitous position. Monitors were applied and a time out was done. The patients name, date of , procedure, allergies to medications and metal in their body was reviewed. The patient was then sedated. Once sedated and comfortable a rectal exam was done. External exam was normal. Internal exam revealed a normal sphincter tone and no palpable masses. The prostate felt smooth. The scope was then introduced and retro-flexed. No internal hemorrhoids, polyps or masses were identified on retro-flexion. The scope was then advanced to the cecum without difficulty. The ileocecal vlave and appendiceal orifice were identified. The prep was adequate. The scope was then slowly retracted over 13 minutes back into the rectum. Polyps were removed with forceps in the sigmoid colon. There was mild sigmoid and descending diverticulosis noted. The scope was removed and the patient was woken up and taken back to Same day surgery in stable condition. The patient tolerated the procedure well and there were no immediate complications.
--- NOTE | 2022-04-28 07:49 | W.PM.DSUDISC ---
Discharge Plan Disposition Patient Disposition: HOME Condition: Good Discharge Details Reason For Visit: colonoscopy Attending Provider: Malena Infante Primary Care Provider: Kat Dickson Discharge Instructions Instructions: Diverticulosis (ED), Colorectal Polyps (DC) Additional Instructions: Findings: One polyp Diverticulosis Follow up: 5 years Please call if you develop: fevers >101.5 Nausea or Vomiting Abdominal pain that is not transient Rectal bleeding that is more then a tbsp A hard abdomen and inability to pass gas DAY SURGERY UNIT POST ENDOSCOPY INSTRUCTIONS Instructions for everyone who is given Anesthesia: For your safety, please do the following for the next 24 Hours: a. Do not drive or operate dangerous equipment b. Do not drink alcohol beverages or use any recreational drugs for the first 24 hours or while taking pain medications. The medications in your body may have a reaction that can be dangerous. c. Do not make any important decisions or sign any important papers 1. Generally there are no restrictions on your activity after a day or so has gone by, but you may feel a bit fatigued for a few days. 2. After you arrive home you may have a light meal and return to a normal diet as you can tolerate it without feeling sick to your stomach. 3. After surgery, you may feel pain or discomfort. This should be only transient, but if it persists please contact your doctor. 4. If there are any questions regarding the findings of your procedure, please feel free to contact your doctor. 6. If you are unable to contact your doctor with a problem, contact the hospital at [phone]. 7. Continue all your regular medications unless directed otherwise. I understand the above instructions and have no questions. Signature of Patient or Responsible Adult Escort Date/Time Name of Responsible Adult Escort Signature of Nurse Date/Time Activity:: Activity as Tolerated Diet:: high fiber Discharge Orders Discharge Orders: Discharge Order (Routine); Ordered 04/28/22 Ordered By: Malena Infante DS: Diagnosis Discharge Diagnosis (1) Encounter for colorectal cancer screening: Status: Acute (2) Hx of diverticulitis of colon:
[2022-04-28 09:00] VITALS: BP 129/82; PULSE 61; RESP 16; TEMP 36.4; O2SAT 100
[2022-04-28] MEDS: Lactated Ringers 1,000 ML 80 ML IV (09:14)
[2022-04-28 09:57] VITALS: BMI 34.4
--- NOTE | 2022-04-28 10:29 | BOWEL_PTH ---
PATIENT: Eric Juarez LOC: [facility] U#:[id number] AGE/SX: 47/M ROOM: RE04/28/[address]: Malena Infante MD : 1975 BED: DIS: 04/28/2022 SPEC #: [id number] RECD: 04/28/22 12:49 STATUS: LAZARO RE #: [id number] KELIN: 04/28/22 10:[address]: Malena Infante DEPT: Surgical Specimen RECD BY: Reshma Carrera ENTERED: 04/28/22 12:50 SP TYPE: Bowel OTHR DR: Kat Dickson Tissues: 1 - BIOPSY BOWEL Procedures: GROSS AND MICRO LEVEL 4 Comments: [id number]
[2022-04-28 10:36] VITALS: BP 125/82; PULSE 60; RESP 16; TEMP 36.3; O2SAT 99
--- NOTE | 2022-04-28 11:08 | W.ANESPOSTOP ---
Postoperative Evaluation Date, Time and Location Date Performed: 04/28/22 Time Performed: 10:50 Patient Location: Day Surgery Unit Vital Signs Most Recent Imported Vital Signs: Most Recent Vital Signs Temp Pulse Resp BP Pulse Ox 36.3 C L 60 16 125/82 99 04/28/22 10:36 04/28/22 10:36 04/28/22 10:36 04/28/22 10:36 04/28/22 10:36 Pain Score Most Recent Pain Score: Most Recent Pain Score Pain Level 0 04/28/22 10:36 Assessment Mental Status: Awake (Alert & Oriented to Patient Baseline) Airway and Respiratory Function: Patent airway with normal (patient baseline) respiratory exam Cardiovascular Function: Hemodynamically Stable Hydration Status: Adequately Hydrated Nausea & Vomiting: No Nausea or Vomiting Pain: Pt. Denies Any Pain Peripheral Nerve Block: Patient did not receive a nerve block
[2022-04-28 11:29] VITALS: BP 125/95; PULSE 60; RESP 16; TEMP 36.4; O2SAT 100
== END 2022-04-28 08:39 | disposition home or self-care (01) ==
LOC: SUR 08:39
PROVIDERS: PCP Nurse Practitioner Family; Visit Provider Surgery
PROC: 0DJD8ZZ Inspection of Lower Intestinal Tract, Via Natural or Artificial Opening Endoscopic (ICD-10-PCS; CPT 45378; principal; 2022-04-28 10:15)
DX: Z12.11 Encounter for screening for malignant neoplasm of colon (principal); K63.5 Polyp of colon; K57.30 Diverticulosis of large intestine without perforation or abscess without bleeding
CPT/HCPCS: 45380; 88305

== ENCOUNTER 2022-08-11 15:07 | Outpatient (REF) | payer MEDICAID, SELFPAY ==
[2022-08-13 11:17] LABS: COVID-19 RT-PCR UVMMC Result Positive (Negative)
== END 2022-08-11 15:08 | disposition home or self-care (01) ==
LOC: LBN 15:07
PROVIDERS: PCP Nurse Practitioner Family; Visit Provider Physician Assistant Medical
DX: R05.8 Other specified cough (principal); Z20.822 Contact with and (suspected) exposure to COVID-19
CPT/HCPCS: U0003

== ENCOUNTER 2023-08-03 16:34 | Outpatient (REF) | payer SELFPAY ==
[2023-08-03 18:52] LABS: HGB 15.6 g/dL (13.5-17.5); MCH 30.5 pg (27.0-33.0); MCHC 34.7 % (32.0-36.0); MCV 88 fL (80-95); MPV 11.6 fL (8.0-11.0); Platelet Count 245 10^3/uL (130-400); RBC 5.12 10^6/uL (4.36-5.78); RDW 12.3 % (11.8-14.1); RDW-SD 40.3 fL; WBC 6.49 10^3/uL (4.4-10.8)
[2023-08-03 19:22] LABS: ALT 68 U/L (16-63); AST 24 U/L (15-37); Albumin 4.1 g/dL (3.4-5.0); Alkaline Phosphatase 83 U/L (46-116); BUN 16 mg/dL (7-18); Bilirubin, Total 0.3 mg/dL (0.2-1.0); CREATININE 1.1 mg/dL (0.70-1.30); Calcium 8.9 mg/dL (8.5-10.1); Chloride 107 mmol/L (98-107); Creatine Kinase 133 U/L (39-308); Estimated GFR 83.32 (mL/min/1.73m2); FREE T4 0.82 ng/dL (0.76-1.46); Glucose 124 mg/dL (74-106); Magnesium 2.2 mg/dL (1.8-2.4); Potassium 3.8 mmol/L (3.5-5.1); Sodium 143 mmol/L (136-145); TSH 0.54 uIU/mL (0.36-3.74); Total Protein 7.1 g/dL (6.4-8.2)
== END 2023-08-03 16:35 | disposition home or self-care (01) ==
LOC: NCHCN 16:34
PROVIDERS: PCP Nurse Practitioner Family; Visit Provider Nurse Practitioner Family
DX: M79.18 Myalgia, other site (principal)
CPT/HCPCS: 80053; 82550; 85027; 83735; 84439; 84443

== ENCOUNTER 2025-02-12 14:26 | Emergency (ER) | payer SELFPAY ==
[2025-02-12] VITALS (11 sets, daily range): BP systolic 129–132; BP diastolic 74–91; PULSE 68–100; RESP 18; TEMP 36.2; O2SAT 97
--- NOTE | 2025-02-12 14:45 | RT.EKG_ITS ---
APPROVED REPORT Exam: Resting ECG Reason for Exam: Left Shoulder Pain Patient Location: E HR:88 bpm ECG Measurements Heart Rate 88 AXIS GA 170 P 11 QRSd 84 QRS 23 QT 355 T 4 QTc 429 Conclusion Sinus rhythm...normal P axis, V-rate 60- 99
--- NOTE | 2025-02-12 14:45 | DI.RAD_ITS ---
Exam(s) XR CHEST 2V PA LATERAL EXAM: XR CHEST 2V PA LATERAL CLINICAL HISTORY: chest pain. TECHNIQUE: 2D digital imaging was performed. COMPARISON: CR,XR XR CHEST 1V IN DI DEPT from 02/20/2022 FINDINGS: 2 views: Heart size is normal. The mediastinum is not widened. No infiltrates nor pleural effusions nor CHF. There is subsegmental platelike atelectasis in the left lung base. IMPRESSION: Subsegmental platelike atelectasis in left lung base. No other significant pulmonary findings. DATA REPOSITORY: RADIATION DOSE DELIVERED:
--- NOTE | 2025-02-12 14:53 | W.ED.GENAD ---
Discharge Plan Disposition Patient Disposition: Home Condition: Stable Discharge Details Clinical Impression: Contusion of anterior chest wall Primary Care Provider: None,None ED Provider: Alfred Nichole Meds and New Rx's Prescriptions: New naproxen 375 mg tablet 375 mg PO BID PRN (Reason: pain) Qty: 30 0RF Discharge Instructions Instructions: Bruised Rib (DC), Minor Contusion ED Discharge Data Discharge Physician: Alfred Nichole HPI General Date/Time Provider Initiated Documentation: 02/12/25 14:53. HPI Narrative: Patient presents to the emergency department stating that he was working 3 days ago with a tool and he pulled it really hard hitting his left upper chest at the time he had mild pain but now he is complaining of more pain in the left upper chest worse when he takes a deep breath or when he moves his arm. States the pain radiates to his left shoulder. Denies any shortness of breath although it hurts when he takes a deep breath Related Data Home Medications ?Medication ?Instructions ?Recorded ?Confirmed naproxen 375 mg tablet 375 mg PO BID PRN pain #30 tabs 02/12/25 Previous Rx's ?Medication ?Instructions ?Recorded naproxen 375 mg tablet 375 mg PO BID PRN pain #30 tabs 02/12/25 Allergies Allergy/AdvReac Type Severity Reaction Status Date / Time No Known Allergies Allergy Verified 02/12/25 14:43 General Stated Complaint: SOB CHRISTA: 3 Review of Systems Narrative: Review of Systems: Constitutional: No fevers, chills, sweats Eye: No recent visual problems ENT: No ear pain, nasal congestion, sore throat Respiratory: No shortness of breath, cough Cardiovascular: No Chest pain, palpitations, syncope Gastrointestinal: No nausea, vomiting, diarrhea Genitourinary: No hematuria Nick/Lymph: Negative for bruising tendency, swollen lymph glands Endocrine: Negative for excessive thirst, excessive hunger Musculoskeletal: No back pain, neck pain, joint pain, muscle pain, decreased range of motion Integumentary: No rash, pruritus, abrasions Neurologic: Alert & oriented X 4 Psychiatric: No anxiety, depression Exam Narrative Exam Narrative: Exam; vitals signs as reported above normal Constitutional; In no acute distress, afebrile General: cooperative, healthy appearing, comfortable and no acute distress HEENT: Head: normal to inspection, no palpable skull fracture and normocephalic atraumatic Eyes: : appearance normal, both eyes and all related structures EOM intact bilaterally Pupils: PERRL : conjunctiva normal Direct ophthalmoscopy: normal light reflex, normal conjunctiva, normal visual acuity Ears: Normal TM, normal external canal Nose: normal no rhinorreha Neck no JVD, supple non tender Neck: normal visual inspection, full ROM and no lymphadenopathy Chest: Tenderness to palpation at the level of left upper chest wall pain reproducible with palpation and deep breathing Respiratory : normal respiratory effort and able to speak in complete sentences no wheezing no rales Cardio Rate: regular rate, rhythm: regular rhythm normal heart sounds S1 and S2 no murmurs, gallops, or rubs GI : normal to inspection, normal bowel sounds, soft, non tender, non distended, no organomegaly Back/Spine/ no CVA tenderness Thoracic/Lumbar Spine: no tenderness or deformities Skin no rashes or lesions Neuro: patient alert oriented x 4 and no meningeal signs, Cranial Nerves: CN's II-XI intact bilaterally, Cognition: normal cognition, Speech: speech normal, Gait: normal gait, Depp tendon reflexes normal 2+ muscle strength 5/5 bilaterally Extremities, no edema, full range of motion, normal strength Course Vital Signs Vital signs: Vital Signs Temperature 36.2 C L 02/12/25 14:38 Pulse 88 02/12/25 14:38 Respiratory Rate 18 02/12/25 14:38 Blood Pressure 129/91 H 02/12/25 14:38 Pulse Oximetry 97 02/12/25 14:38 Temperature 36.2 C L 02/12/25 14:38 Temperature Source Tympanic 02/12/25 14:38 Pulse 88 02/12/25 14:38 Respiratory Rate 18 02/12/25 14:38 Blood Pressure 129/91 H 02/12/25 14:38 Blood Pressure Position Supine 02/12/25 14:38 Pulse Oximetry 97 02/12/25 14:38 Oxygen Delivery Method Room Air 02/12/25 14:38 Oxygen Flow Rate 0 02/12/25 14:38 Pain Level 6 02/12/25 14:38 Medical Decision Making MDM: Summary: Patient who sustained trauma to his left upper chest approximately 4 to 5 days ago who started having more pain worse when he takes a deep breath and states that he has been taking Tylenol without improvement. Worse when he moves his arm. And the pain is palpable on palpation. Here in the emergency department he had an EKG done which is within normal limits chest x-ray that shows questionable atelectasis in that lower lobe but no pneumothorax no visible rib fractures. He also had labs which include a troponin and a D-dimer which were unremarkable most likely this patient has musculoskeletal pain costochondritis and cannot rule out a small fissure in the rib cage. He is safe to be discharged she will be discharged on Naprosyn and I have asked him to follow-up with his primary care physician and if the pain continues or he gets really short of breath to return to the emergency room. For evaluation Data Review Analysis All the data on this patient was reviewed by me including laboratory and imaging studies as well as bedside studies performed by me Independent review of Studies Imaging Chest x-ray does not show any significant abnormality no pneumothorax Lab: Labs are unremarkable Risk Stratification: Patient with chest wall contusion and will be discharged home Differential Diagnosis: 1. Chest wall contusion 2. Rib fracture 3. Pneumothorax 4. Lung contusion 5. Consultants: Shared disposition: Patient is sent for disposition to follow according Impression: Medical Records Medical records reviewed: Yes I reviewed the patient's medical records. Imaging Data Radiologic Study: Attestation: I personally reviewed and interpreted this imaging study as follows: Imaging: X-Ray Radiologist's impression: Patient Name: Eric Juarez Unit #: [id number] Loc: ER Ordering Provider: Alfred Nichole M.D. Status: [facility] Primary Care Provider: None,None Date of Exam: 02/12/25 Sex: M Admission Date: 02/12/25 : 1975 Age: 49 Exam(s) XR CHEST 2V PA LATERAL EXAM: XR CHEST 2V PA LATERAL CLINICAL HISTORY: chest pain. TECHNIQUE: 2D digital imaging was performed. COMPARISON: CR,XR XR CHEST 1V IN DI DEPT from 02/20/2022 FINDINGS: 2 views: Heart size is normal. The mediastinum is not widened. No infiltrates nor pleural effusions nor CHF. There is subsegmental platelike atelectasis in the left lung base. IMPRESSION: Subsegmental platelike atelectasis in left lung base. No other significant pulmonary findings. DATA REPOSITORY: RADIATION DOSE DELIVERED: Ordered By: Alfred Nichole M.D. CC: Lab Data Lab results reviewed: Yes I reviewed the patient's lab results. ECG Data Attestation: I personally reviewed and interpreted this ECG (s) as follows: Prior ECG tracings: available for review Interpretation: Heart rate of [address] no acute [address]-T changes PFSH All Active Problems (Updated 02/12/25 @ 16:20 by Alfred Nichole MD) Contusion of anterior chest wall (Acute) Serrated adenoma of colon (Acute) Encounter for colorectal cancer screening (Acute) Diverticulosis (Acute) Medical History Hx of diverticulitis of colon Asthma Seizure disorder Per pt. states he had grand mal seizures that turned into petite mal when he was a child, last seizure was when he 9 years old Plantar fasciitis Medial epicondylitis Diverticulitis Surgical History History of colonoscopy (~03/2022) Social History Smoking/Tobacco Use Status: Former Tobacco Use Quit Date: 07/31/95 Smoking risk assessment performed?: Yes Alcohol Intake: current Alcohol Intake frequency: a few times a month Drug use: Rarely Substance use type: marijuana Housing: house Do you feel safe at home: Yes Do you feel safe in your relationship?: Yes
[2025-02-12 15:19] LABS: Abs Immature Grans 0.02 10^3/uL (0.0-0.06); HCT 44.3 % (40.0-50.0); HGB 15.4 g/dL (13.5-17.5); Immature Grans % 0.3 %; MCH 30.6 pg (27.0-33.0); MCHC 34.8 % (32.0-36.0); MCV 88 fL (80-95); MPV 10.7 fL (8.0-11.0); Platelet Count 248 10^3/uL (130-400); RBC 5.04 10^6/uL (4.36-5.78); RDW 13.1 % (11.8-14.1); RDW-SD 41.4 fL; WBC 6.09 10^3/uL (4.4-10.8)
[2025-02-12 15:41] LABS: ALT 41 U/L (16-63); AST 18 U/L (15-37); Albumin 4.1 g/dL (3.4-5.0); Alkaline Phosphatase 90 U/L (46-116); Anion Gap 10.4 mmol/L (3-11); BUN 17 mg/dL (7-18); Bilirubin, Total 0.4 mg/dL (0.2-1.0); CO2 27.6 mmol/L (21.0-32.0); Calcium 9.2 mg/dL (8.5-10.1); Chloride 107 mmol/L (98-107); Estimated GFR 92.84 (mL/min/1.73m2); Glucose 102 mg/dL (74-106); Magnesium 2.2 mg/dL (1.8-2.4); Potassium 3.8 mmol/L (3.5-5.1); Sodium 145 mmol/L (136-145); Total Protein 7.4 g/dL (6.4-8.2); Troponin I 12 ng/L (<or=76)
[2025-02-12 15:45] LABS: D-Dimer 234 ng/mlFEU (<500)
[2025-02-12 19:16] LABS: Troponin I 10 ng/L (<or=76)
== END 2025-02-12 16:40 | disposition home or self-care (01) ==
PROVIDERS: Emergency Provider Emergency Medicine Emergency Medical Services
DX: S20.212A Contusion of left front wall of thorax, initial encounter (principal); W22.8XXA Striking against or struck by other objects, initial encounter; Y93.89 Activity, other specified; Y92.89 Other specified places as the place of occurrence of the external cause; Y99.0 Civilian activity done for income or pay
CPT/HCPCS: 80053; 93005; 99284; 71046; 83735; 84484; 85025; 85379; 93010

== ENCOUNTER 2025-05-08 14:42 | Outpatient (REF) | payer SELFPAY ==
[2025-05-08 19:13] LABS: Abs Immature Grans 0.02 10^3/uL (0.0-0.06); HCT 44.2 % (40.0-50.0); HGB 15.5 g/dL (13.5-17.5); Immature Grans % 0.3 %; MCH 31.2 pg (27.0-33.0); MCHC 35.1 % (32.0-36.0); MCV 89 fL (80-95); MPV 11.5 fL (8.0-11.0); Platelet Count 229 10^3/uL (130-400); RBC 4.97 10^6/uL (4.36-5.78); RDW 12.7 % (11.8-14.1); RDW-SD 41.4 fL; WBC 6.80 10^3/uL (4.4-10.8)
[2025-05-08 19:31] LABS: ESR 1 mm/hr (0-15)
[2025-05-08 19:42] LABS: ALT 67 U/L (16-63); AST 26 U/L (15-37); Albumin 4.2 g/dL (3.4-5.0); Alkaline Phosphatase 83 U/L (46-116); Anion Gap 10.2 mmol/L (3-11); BUN 17 mg/dL (7-18); Bilirubin, Total 0.5 mg/dL (0.2-1.0); CO2 26.8 mmol/L (21.0-32.0); Calcium 9.0 mg/dL (8.5-10.1); Calculated LDL 145 mg/dL (<100); Chloride 105 mmol/L (98-107); Cholesterol 210 mg/dL (<200); Estimated GFR 92.26 (mL/min/1.73m2); Glucose 98 mg/dL (74-106); HDL Cholesterol 32 mg/dL (>or=40); Potassium 3.9 mmol/L (3.5-5.1); Sodium 142 mmol/L (136-145); TSH (W/Ref FT4) 0.28 uIU/mL (0.36-3.74); Total Protein 7.0 g/dL (6.4-8.2); Triglyceride 169 mg/dL (<150)
[2025-05-08 19:46] LABS: Hemoglobin A1C 5.4 % (<5.7)
== END 2025-05-08 14:43 | disposition home or self-care (01) ==
LOC: NCHCN 14:42
PROVIDERS: Visit Provider Nurse Practitioner Family
DX: H34.8320 Tributary (branch) retinal vein occlusion, left eye, with macular edema (principal)
CPT/HCPCS: 80053; 80061; 85652; 83036; 84439; 84443; 85025